=== PATIENT | male | born 1935 | race Caucasian/White ===

== ENCOUNTER 2018-03-20 11:24 | Day surgery (SDC) | payer OTHER, BC ==
--- OUTSIDE RECORDS SUMMARY | 2018-03-20 11:31 | XMS REPORT | Clinical Summary ---
:1935 Author Organization [facility] Address [address] [place] [address] Care Team Providers Name Role Phone Shailesh Mccauley MD Primary Care Provider Allergies No Known Allergies Current Medications Prescription Sig. Disp. Refills Start Date End Date Status atorvastatin (LIPITOR) 40 11/16/2017 Active MG tablet levothyroxine (SYNTHROID, 11/16/2017 Active LEVOXYL) 25 mcg tablet aspirin (ECOTRIN) 81 MG Take 81 mg by Active enteric coated tablet mouth daily. carvedilol (COREG) 3.125 Take 3.125 mg by Active MG tablet mouth 2 (two) times a day with meals. zinc sulfate (ZINCATE) 220 Take 220 mg by Active (50) mg capsule mouth daily. multivitamin with minerals Take 1 tablet by Active tablet mouth daily. ascorbic acid, vitamin C, Take 500 mg by Active (VITAMIN C) 500 MG tablet mouth daily. meropenem-0.9% sodium Infuse 1 g into a Active chloride 1 gram/50 mL venous catheter. piggyback VANCOMYCIN/0.9 % SOD Infuse into a Active CHLORIDE (VANCOMYCIN IN venous catheter. 0.9 % SODIUM CHL) 1.25 gram/250 mL solution LIRAGLUTIDE SUBQ Inject 1.8 mg Active under the skin. sitaGLIPtin (JANUVIA) 50 Take 50 mg by Active MG tablet mouth daily. insulin asp prt-insulin Inject 4 Units Active ASPART (NovoLOG 70/30) 100 under the skin 3 unit/mL (70-30) injection (three) times a day. WITH MEALS lisinopril Take 10 mg by Active (PRINIVIL,ZESTRIL) 10 mg mouth daily. tablet Active Problems Not on file Encounters Date Type Specialty Care Team Description 01/21/2018 Hospital Encounter General Surgery Basilio Fernandes Peripheral vascular T., MD disease 01/21/2018 Anesthesia Event General Surgery Adal Franklin, DIRECTOR OF PLACEMENT 01/21/2018 Procedure Pass General Surgery 01/21/2018 Surgery General Surgery Basilio Fernandes LEFT LOWER EXTREMITY MD Luci ANGIOGRAM,CSI ARTHRECTOMY, BALLOON ANGIOPLASTY, STENT PLACEMENT 01/17/2018 Hospital Encounter General Surgery Basilio Fernandes MD 01/17/2018 Orders Only Radiology Jason Gamez, RT 01/17/2018 Anesthesia Event General Surgery Nidia Cowan, DIRECTOR OF PLACEMENT 01/17/2018 Procedure Pass General Surgery 01/17/2018 Surgery General Surgery Basilio Fernandes LEFT LOWER EXTREMITY MD Luci ANGIOGRAM, ANTERIOR TIBIAL ARTERY BALLOON ANGIOPLASTY, INSERTION OF ENDOVASCULAR STENT TO LEFT SUPERFICIAL FEMORAL ARTERY, INTRAVASCULAR ULTRASOUND OF LEFT COMMON ILIAC ARTERY after 03/19/2017 Social History Tobacco Use Types Packs/Day Years Used Date Former Smoker 2 15 Quit: 1963 Smokeless Tobacco: Never Used Alcohol Use Drinks/Week oz/Week Comments No Sex Assigned at Date Recorded Not on file Last Filed Vital Signs Vital Sign Reading Time Taken Blood Pressure 164/87 01/21/2018 5:00 PM SIDE STITCHING MACHINE OPERATOR Pulse 69 01/21/2018 5:15 PM SIDE STITCHING MACHINE OPERATOR Temperature 36.8 C (98.2 F) 01/21/2018 3:57 PM SIDE STITCHING MACHINE OPERATOR Respiratory Rate 18 01/21/2018 5:15 PM SIDE STITCHING MACHINE OPERATOR Oxygen Saturation 98% 01/21/2018 5:15 PM SIDE STITCHING MACHINE OPERATOR Inhaled Oxygen Concentration - - Weight 93 kg (205 lb 0.4 oz) 01/21/2018 12:04 PM SIDE STITCHING MACHINE OPERATOR Height 180.3 cm (5' 11") 01/21/2018 12:04 PM SIDE STITCHING MACHINE OPERATOR Body Mass Index 28.6 01/21/2018 12:04 PM SIDE STITCHING MACHINE OPERATOR Plan of Treatment Health Maintenance Due Date Last Done Comments SHINGRIX VACCINE (#1) 1983 ZOSTER VACCINE 1993 PNEUMOCOCCAL POLYSACCHARIDE VACCINE AGE 65 AND OVER 1998 PNEUMOCOCCAL-13 1998 INFLUENZA VACCINE 06/19/2018 Implants Implanted Type Area Bottom Cager Device Expiration Model / Identifier Date Serial / Lot Valve Hmsts Accessplus 9fr Lgbr - [id number] Cardiovascular N/A: N/A [employer] 12/19/2019 [id number] / Implanted: 01/17/2018 (Quantity not on file) [employer] / [id number] Stent Supera Peripheral Syst [id number] - [id number] Peripheral or N/A : N/A ESTRADA 06/18/2019 S 50 [id number] P6 / Implanted: 01/21/2018 (Quantity not on file) Biliary Stents VASCULAR / DEVICES [id number] System Clsr Sut Meditd 6fr Perclose Proglide - [id number] Surgical Right: ESTRADA 10/18/2019 [id number] / Implanted: 01/17/2018 (Quantity not on file) Implants; Artery, VASCULAR / Expanders; Femoral DEVICES [id number] Extenders; Surgical Wires System Clsr Sut Meditd 6fr Perclose Proglide - [id number] Surgical N/A: N/A ESTRADA 08/18/2019 [id number] / Implanted: 01/21/2018 (Quantity not on file) Implants; VASCULAR / Expanders; DEVICES [id number] Extenders; Surgical Wires Procedures Procedure Name Priority Date/Time Associated Diagnosis Comments FL AN ELECTIVE Routine 01/21/2018 1:36 PM SUPRAGLOTTIC AIRWAY SIDE STITCHING MACHINE OPERATOR Procedure Note - Adal Franklin CRNA - 01/21/2018 1:36 PM SIDE STITCHING MACHINE OPERATOR Airway Date/Time: 01/21/2018 1:36 PM Performed by: ADAL FRANKLIN Authorized by: LUCRECIA ELIZABETH Location: OR Urgency: Elective Difficult Airway: No Anesthesiologist: LUCRECIA ELIZABETH Resident/ROSALIE/AA: ADAL FRANKLIN Performed by: resident/ROSALIE/AA Preoxygenated with 100% O2: Yes C-spine Precautions Maintained Throughout: Yes Mask Ventilation: Easy mask Final Airway Type: Supraglottic airway Final LMA: I-Gel LMA Size: 5 Number of Attempts at Approach: 1 FL AN ELECTIVE SUPRAGLOTTIC AIRWAY Routine 01/17/2018 2:49 PM SIDE STITCHING MACHINE OPERATOR Procedure Note - Jazzy Gordon CRNA - 01/17/2018 2:49 PM SIDE STITCHING MACHINE OPERATOR Airway Date/Time: 01/17/2018 2:42 PM Performed by: JAZZY GORDON Authorized by: LUCRECIA ELIZABETH Location: OR Urgency: Elective Difficult Airway: No Anesthesiologist: LUCRECIA ELIZABETH Resident/DIRECTOR OF PLACEMENT/AA: JAZZY GORDON Performed by: resident/DIRECTOR OF PLACEMENT/AA Preoxygenated with 100% O2: Yes C-spine Precautions Maintained Throughout: Yes Mask Ventilation: Easy mask Final Airway Type: Supraglottic airway Final LMA: I-Gel LMA Size: 5 Number of Attempts at Approach: 1 after 03/19/2017 Results OR FL > I Hour (01/21/2018 2:46 PM)Only the most recent of2 resultswithin the time period is included. Specimen Performing Laboratory [facility] [address] [place] [address] Narrative EXAMINATION:OR FL 1 HOUR CLINICAL HISTORY: IMPRESSION: Fluoroscopy was provided. No radiologist present.Please see procedure report for discussion of procedure, findings and fluoroscopic time. [facility]-[id number] Procedure Note Hm Interface, Radiology Results Incoming - 01/21/2018 2:52 PM SIDE STITCHING MACHINE OPERATOR EXAMINATION: OR FL 1 HOUR CLINICAL HISTORY: IMPRESSION: Fluoroscopy was provided. No radiologist present. Please see procedure report for discussion of procedure, findings and fluoroscopic time. [facility]-[id number] POC glucose (01/21/2018 2:40 PM)Only the most recent of3 resultswithin the time period is included. Component Value Ref Range POC glucose 190 (H) 65 - 99 mg/dL Comment: RN Notified Meter ID: [id number] Customer Acquisition Specialist: Petar Coles Specimen Performing Laboratory [facility] DEPARTMENT OF PATHOLOGY AND GENOMIC MEDICINE [address] [place] [address] Sodium level, syringe (01/21/2018 2:14 PM) Component Value Ref Range Sodium, syringe 132 125 - 148 mEq/L Specimen Performing Laboratory Blood [facility] DEPARTMENT OF PATHOLOGY AND GENOMIC MEDICINE [address] [place] [phone] Potassium, syringe (01/21/2018 2:14 PM) Component Value Ref Range Potassium, syringe 4.0 3.5 - 5.0 mEq/L Specimen Performing Laboratory Blood [facility] DEPARTMENT OF PATHOLOGY AND GENOMIC MEDICINE [address] [place] [address] Ionized calcium, arterial (01/21/2018 2:14 PM) Component Value Ref Range Ionized calcium, arterial 1.06 (L) 1.11 - 1.32 mmol/L Specimen Performing Laboratory Blood [facility] DEPARTMENT OF PATHOLOGY AND GENOMIC MEDICINE [address] [place] [phone] Hemoglobin, syringe (01/21/2018 2:14 PM) Component Value Ref Range Hemoglobin, syringe 10.2 (L) 14.0 - 18.0 g/dL Specimen Performing Laboratory Blood [facility] DEPARTMENT OF PATHOLOGY AND GENOMIC MEDICINE [address] [place], [place] [phone] Glucose level, syringe (01/21/2018 2:14 PM) Component Value Ref Range Glucose, syringe 170 (H) 65 - 99 mg/dL Specimen Performing Laboratory Blood [facility] DEPARTMENT OF PATHOLOGY AND GENOMIC MEDICINE [address] [place], [place] [phone] Estimated GFR (01/21/2018 2:14 PM) Component Value Ref Range GFR Non Af Amer >90 mL/min/1.73 m2 GFR Af Amer >90 mL/min/1.73 m2 Comment: Chronic kidney disease: <60 mL/min/1.73m2 Kidney failure: <15 mL/min/1.73m2 The estimated GFR is calculated from the IDMS-traceable Modification of Diet in Renal Disease Equation. The accuracy of the calculation is poor when the creatinine is normal. Calculated values >90 mL/min/1.73m2 are not reported. This equation has not been validated in children (<18 years), women, the elderly (>70 years), or ethnic groups other than Caucasians and Americans. Specimen Performing Laboratory Plasma specimen [facility] DEPARTMENT OF PATHOLOGY AND GENOMIC MEDICINE [address] [place], [place] [phone] Arterial blood gas, corrected (01/21/2018 2:14 PM) Component Value Ref Range pH, arterial 7.37 7.35 - 7.45 pCO2, arterial 41 35 - 45 mmHg pO2, arterial 361 (H) 80 - 90 mmHg Temperature, Celsius 36.5 Degrees C O2 saturation, arterial 99 95 - 100 % pH, arterial corrected 7.37 pCO2, arterial corrected 40 mmHg pO2, arterial corrected 358 mmHg Base excess, arterial -2 -2 - 2 mEq/L Specimen Performing Laboratory Blood [facility] DEPARTMENT OF PATHOLOGY AND GENOMIC MEDICINE [address] [place], [place] [phone] CBC hemogram (01/21/2018 2:14 PM) Component Value Ref Range WBC 16.0 (H) 4.5 - 11.0 k/uL RBC 3.46 (L) 4.40 - 6.00 m/uL HGB 9.7 (L) 14.0 - 18.0 g/dL HCT 30.2 (L) 41.0 - 51.0 % MCV 87.3 82.0 - 100.0 fL MCH 28.0 27.0 - 34.0 pg MCHC 32.1 31.0 - 37.0 g/dL RDW - SD 45.1 37.0 - 55.0 fL MPV 10.5 6.9 - 11.0 fL Platelet count 410 (H) 150 - 400 K/uL Nucleated RBC 0.00 /100 WBC Specimen Performing Laboratory [facility] DEPARTMENT OF PATHOLOGY AND [address] [address] Magnesium level (01/21/2018 2:14 PM) Component Value Ref Range Magnesium 2.2 1.6 - 2.4 mg/dL Specimen Performing Laboratory Plasma specimen [facility] PATHOLOGY AND [address] [address] Basic metabolic panel (01/21/2018 2:14 PM) Component Value Ref Range Sodium 134 (L) 135 - 148 mEq/L Potassium 4.3 3.5 - 5.0 mEq/L Chloride 100 98 - 112 mEq/L CO2 23 (L) 24 - 31 mEq/L Anion gap 11 7 - 15 mEq/L Comment: Starting from February , anion gap calculation no longer incorporates potassium. Please note the change. BUN 14 8 - 23 mg/dL Creatinine 0.7 0.7 - 1.2 mg/dL Glucose 174 (H) 65 - 99 mg/dL Calcium 8.4 (L) 8.8 - 10.2 mg/dL Specimen Performing Laboratory Plasma specimen [facility] DEPARTMENT PATHOLOGY AND [address] [address] Urinalysis screen and microscopy, with reflex to culture (01/21/2018 1:30 PM) Component Value Ref Range Specimen site Catheterized Color, UA Yellow Appearance, UA Sl Cloudy Specific gravity, UA 1.012 1.001 - 1.030 pH, UA 5.0 5.0 - 9.0 Protein, UA Negative Negative Glucose, UA Negative Negative Ketones, UA Negative Negative Bilirubin, UA Negative Negative Blood, UA Negative Negative Nitrite, UA Negative Negative Urobilinogen, UA <2.0 <2.0 E.U./dL Leukocyte esterase, UA Negative Negative WBC, UA <1 0 - 1 /HPF RBC, UA 1 0 - 1 /HPF Bacteria, UA Few None seen Yeast, UA None seen Yeast with pseudohyphae, UA None seen Specimen Performing Laboratory Urine - Urine, catheter [facility] DEPARTMENT OF PATHOLOGY AND GENOMIC MEDICINE [address] [place] [phone] Urine culture (01/21/2018 1:30 PM) Component Value Ref Range Urine culture SEE COMMENTComment: Bacteriuria screen negative. Specimen Performing Laboratory [facility] DEPARTMENT OF PATHOLOGY AND GENOMIC MEDICINE [address] [place] [address] Type and screen (01/21/2018 12:27 PM)Only the most recent of2 resultswithin the time period is included. Component Value Ref Range ABO grouping B Rh type POS Antibody screen (gel) NEG Specimen Performing Laboratory Blood [facility] DEPARTMENT OF PATHOLOGY AND GENOMIC MEDICINE [address] [place] [phone] XR Chest 1 Vw Portable (01/17/2018 2:27 PM) Specimen Performing Laboratory [facility] [address] [place] [address] Narrative EXAMINATION:XR CHEST 1 VW PORTABLE CLINICAL HISTORY:pre procedure COMPARISON:None available. IMPRESSION: A left PICC overlies the distal SVC. Cardiomediastinal silhouette is normal. Pulmonary vasculature is normal, and the lungs are clear. No pleural effusion or pneumothorax. Degenerative changes in the spine. [facility]-[id number] Procedure Note Interface, Radiology Results Incoming - 01/17/2018 2:41 PM SIDE STITCHING MACHINE OPERATOR EXAMINATION: XR CHEST 1 VW PORTABLE CLINICAL HISTORY: pre procedure COMPARISON: None available. IMPRESSION: A left PICC overlies the distal SVC. Cardiomediastinal silhouette is normal. Pulmonary vasculature is normal, and the lungs are clear. No pleural effusion or pneumothorax. Degenerative changes in the spine. [facility]-[id number] Partial thromboplastin time, activated (01/17/2018 2:04 PM) Component Value Ref Range PTT 23.9 23.0 - 36.0 sec Comment: PTT therapeutic range for unfractionated heparin is 61.0-112.0 seconds which corresponds to Anti-Xa 0.3-0.7 U/ml. Specimen Performing Laboratory Blood [facility] DEPARTMENT OF PATHOLOGY AND GENOMIC MEDICINE [address] [place] [phone] Prothrombin time with INR (01/17/2018 2:04 PM) Component Value Ref Range Prothrombin time 13.9 12.0 - 15.0 sec INR 1.1 Comment: The International Normalized Ratio (INR) is a therapeutic monitoring tool for patients who are stable on oral anticoagulant therapy. An INR of 2.0-3.0 is suggested for deep vein thrombosis/pulmonary embolism. Specimen Performing Laboratory Blood [facility] DEPARTMENT OF PATHOLOGY AND GENOMIC MEDICINE [id number] [place] [address]. [place] [address] ECG 12 lead (01/17/2018 1:59 PM) Component Value Ref Range Ventricular rate 62 Atrial rate 62 FL interval 230 QRSD interval 96 QT interval 428 QTC interval 434 P axis 1 54 QRS axis 1 48 T wave axis 64 EKG impression Sinus rhythm with 1st degree AV block-Otherwise normal ECG-No previous ECGs available- Specimen Performing Laboratory [facility] [address] [place] [address] after 03/19/2017 Insurance Payer Benefit Plan / Group Subscriber ID Type Phone Address [facility] xxxxxxxxx Ani Home: [employer] [phone] [address] [facility] Ani Other 1935 Home: [employer] [phone] [address]
--- NOTE | 2018-03-20 11:35 | RAD REPORT ---
EXAM DESCRIPTION: RAD - Chest Pa And Lat (2 Views) - 03/20/2018 11:29 am CLINICAL HISTORY: Chest pain, preop. COMPARISON: 01/09/2018, 01/07/2018 FINDINGS: The lungs are mildly emphysematous but clear. The heart is normal in size. No displaced fr actures. Mild thoracic spondylosis. IMPRESSION: Mild COPD.
[2018-03-20 11:44] LABS: Protime INR 1.1
[2018-03-20] MEDS ORDERED: NA CHLORIDE 0.9% 1,000 ML ONE (11:51)
[2018-03-20 12:08] LABS: Absolute Lymphocytes (CBC) 2.7 K/uL (0.7-4.9); Absolute Monocytes 1.5 K/uL (0.1-1.3); Absolute Neutrophil 11.3 K/uL (1.8-8.0); Basophils % 0.8 % (0-1.3); Eosinophils % 2.5 % (0-4.4); Hematocrit 34.9 % (39.6-49.0); Lymphocytes % 16.6 % (15.3-44.8); MCH 26.5 pg (27.0-35.0); MCV 82.9 fL (80-100); Monocytes % 9.6 % (3.3-12.3); RBC Red Blood Cell Count 4.21 M/uL (4.33-5.43)
--- NOTE | 2018-03-20 12:16 | EKG ---
Test Date: 2018-03-20 Test Time: 11:04:09 Career Guidance Technician: JORDON MEASUREMENT RESULTS: Intervals: Rate: 67 UT: 204 QRSD: 98 QT: 408 QTc: 431 [place]: P: 42 UT: 204 QRS: 26 T: 54 INTERPRETIVE STATEMENTS: Normal sinus rhythm Normal ECG Compared to ECG 01/07/2018 15:37:36 Atrial fibrillation no longer present T-wave abnormality no longer present Electronically Signed On 03-20-18 12:15:42 CDT by Matias Turner
[2018-03-20 12:27] VITALS: BP 122/67; TEMP 97.7; O2SAT 98
[2018-03-20] MEDS ORDERED: BUPIVACAINE 0.5% PF 10 ML VIAL ONE (12:51)
[2018-03-20] MEDS ORDERED: LIDOCAINE 1% 20 ML MDV ONE (12:51)
[2018-03-20] MEDS ORDERED: PROPOFOL 200 MG/20 ML VIAL IV ONE ×2 (12:53→13:22)
[2018-03-20] MEDS ORDERED: LIDOCAINE 2% MPF 5 ML VIAL ONE (12:53)
--- NOTE | 2018-03-20 13:40 | P.OP ---
Visitor Services Representative: NONE,NONE Preoperative diagnosis: left hallux osteomyelitis Postoperative diagnosis: same Primary procedure: left hallux amputation Secondary procedure: none Other procedure(s): none Anesthesia: mac with 10cc 1:1 o.5% marcaine, 1% lidocaine plain Estimated blood loss: <20cc Specimen: bone Findings: as above Operative Technique: left hallux amputation at the mpj Complications: None
== END 2018-03-20 14:45 | disposition home or self-care (01) ==
LOC: OR 11:24
PROVIDERS: ATTEND Podiatrist Foot & Ankle Surgery
PROC: 0Y6Q0Z0 Detachment at Left 1st Toe, Complete, Open Approach (ICD-10-PCS; principal; 2018-03-20 12:30)
DX: M86.172 Other acute osteomyelitis, left ankle and foot (principal)
CPT/HCPCS: 28820; 36415; 71046; 82947; 82962; 85025; 85610; 85730; 88305; 88311; 93005; J7030

== ENCOUNTER 2021-04-05 07:05 | Day surgery (SDC) | payer OTHER, BC ==
[2021-04-01 13:22] LABS: Absolute Lymphocytes (CBC) 2.1 K/uL (0.7-4.9); Basophils % 1.3 % (0-1.3); Hematocrit 36.4 % (39.6-49.0); MPV 9.3 fL (7.6-11.3); RBC Red Blood Cell Count 4.35 M/uL (4.33-5.43)
[2021-04-01 13:24] LABS: Protime INR 1.79
--- NOTE | 2021-04-01 13:38 | RAD REPORT ---
EXAM DESCRIPTION: Genny Dewey (2 Views)04/01/2021 1:14 pm CLINICAL HISTORY: Preop for circumcision COMPARISON: 2017 FINDINGS: Mild elevation of the left hemidiaphragm unchanged Lungs appear clear of acute infiltrate. Heart is borderline enlarged IMPRESSION: No acute abnormalities displayed
[2021-04-01 13:40] LABS: Potassium 4.7 mmol/L (3.5-5.1)
[2021-04-05] MEDS ORDERED: CEFAZOLIN/SWI 2gm 2 GM/20 ML SYR ONE (07:45)
[2021-04-05] MEDS ORDERED: NA CHLORIDE 0.9% 1,000 ML ONE (07:45)
[2021-04-05] MEDS ORDERED: LIDOCAINE 1% MPF 30 ML VIAL ONE (07:46)
[2021-04-05] MEDS ORDERED: BUPIVACAINE 0.25% PF 10 ML VIAL ONE (07:46)
[2021-04-05] MEDS ORDERED: BACITRACIN OINTMENT 15 GM TUBE TOP ONE (07:49)
[2021-04-05 07:53] LABS: Protime INR 1.09
[2021-04-05] MEDS ORDERED: LIDOCAINE 1% MPF 5 ML VIAL ONE (08:44)
[2021-04-05] MEDS ORDERED: propofoL 200 MG/20 ML VIAL IV ONE ×3 (08:44→08:58)
[2021-04-05] MEDS ORDERED: FENTANYL CITR 100 MCG/2 ML ONE (08:44)
[2021-04-05] MEDS ORDERED: Phenylephrine HCl 10 MG/ML 1 ML VIAL ONE (09:16)
[2021-04-05] MEDS ORDERED: NS 0.9% VIAL 10 ML ONE (09:16)
[2021-04-05] MEDS ORDERED: HYDROCODONE/APAP 5/325 MG TAB PO PRN (10:09)
--- NOTE | 2021-04-05 11:04 | OP ---
Surgeon: ANAND SIMPSON Preoperative Diagnosis: Dense phimosis. Postoperative Diagnosis: Dense phimosis. Principle Procedures: 1. Penile block. 2. Sleeve circumcision. Date of Procedure: 04/05/21 Indication For Procedure: Mr. Roberts presented to the Urology Clinic with bothersome more urinary symptoms. He noted significant improvement of his symptoms associated with the use of alpha blockers, but he had persistent issues with phimosis where he was unable to visualize the glans penis. As a result, he was recommended for elective circumcision and was scheduled accordingly. Procedure In Detail: The patient was consented in the preoperative holding area before being transferred to the operative suite where general anesthesia was induced. He was given Ancef 2 g IV antimicrobial prophylaxis and pneumo boots were provided for DVT prophylaxis. He was supine on the procedure table, padded and secured appropriately. His genitalia were shaved, prepped using Betadine, and draped in standard fashion. A penile block was then applied using a 1:1 or 50:50 mixture of 1% lidocaine and 4% Marcaine plain. A total of 30 mL of the mixture was injected in the infrapubic region and in the region of the neurovascular bundles bilaterally. The case was then begun by using a straight clamp to perform a dorsal slit and divide the dense phimotic ring. Once the glans was visualized, a circumferential incision line was made at the base of the cobos of the glans, and a 15 blade was used to incise the skin and subcutaneous tissues as well as some of the dartos layers. The foreskin was then completely retracted, and a preputial margin was then developed leaving an approximately 1 cm preputial margin with the remainder excised using a 15 blade. The intervening skin was then divided in the dorsal midline and then resected off the shaft of the penis using electrocautery. Once this was performed, that was sent for pathologic analysis. A then careful search for bleeding was undertaken by fulgurating any and all potential bleeding vessels within the dartos layers of the penis. Of note, likely from the penile block initially given, there was a slight degree of subcutaneous hematoma in the dartos layers and this was carefully fulgurated and any hematoma was excised. The area was carefully surveyed over a period of time and was noted to be completely hemostatic and completely fulgurated. With no significant other oozing noted, I then began the reconstruction. Using 3-0 chromic suture dipped in bacitracin, quadrant sutures were applied and the intervening tissues were then sewn together in a running horizontal mattress fashion. In the end, the cosmetic result was excellent and the area was completely hemostatic. Where there was a slight degree of ooze noted, an additional [id number]-gy-[id number] suture was applied given the patient's need to resume anticoagulant therapy. A wet and dry was then applied to cleanse the Betadine, and bacitracin was applied around the incision. A Bob and then Coban dressing was applied, and the patient was then awakened from general anesthesia, transferred to a stretcher, and then to the recovery room in good condition. Complications: None. Discharge Disposition: He will keep the pressure dressing on as long as it is not painful or until tomorrow morning, at which point, he can remove it himself at home. A prescription for Tylenol with Codeine will be sent to the pharmacy for pain management as necessary. I am going to recommend that he refrain from taking his anticoagulant medication until next Sunday, at which point, he can resume it and notify us in the office if he has any issues. ADALID/LEXA Voice ID: [id number] Report ID: [id number] RUTH
[2021-04-05 11:47] VITALS: TEMP 97.2
[2021-04-05 11:48] VITALS: BP 121/73; O2SAT 97
--- NOTE | 2021-04-06 08:45 | EKG ---
Test Date: 2021-04-01 Test Time: 11:48:39 Doctor Of Nurse Anesthesia Practice: [facility] MEASUREMENT RESULTS: Intervals: Rate: 81 MT: QRSD: 100 QT: 372 QTc: 432 [place]: P: MT: QRS: 64 T: 8 INTERPRETIVE STATEMENTS: Atrial flutter with variable AV block Abnormal ECG Compared to ECG 03/20/2018 11:04:09 Sinus rhythm no longer present Electronically Signed On 04-06-21 08:41:50 CDT by Alejandro Steinberg
== END 2021-04-05 11:23 | disposition home or self-care (01) ==
LOC: OR 07:05
PROVIDERS: ATTEND Urology
PROC: 0VTTXZZ Resection of Prepuce, External Approach (ICD-10-PCS; principal; 2021-04-05 08:15)
DX: N47.1 Phimosis (principal); Z20.822 Contact with and (suspected) exposure to COVID-19
CPT/HCPCS: 93005; 85025; 80048; 36415 ×2; 85610 ×2; 82947; 88304; 85730; 71046; 54150; U0003; J2704 ×3; J2370; J3010; J0690; J7030

== ENCOUNTER 2022-06-16 09:24 | Emergency (ER) | payer OTHER, BC ==
[2022-06-16] MEDS ORDERED: PANTOPRAZOLE 40 MG INJ ONE (10:22)
--- NOTE | 2022-06-16 10:59 | ER ---
Nurse's Notes [facility] Name: Jorge Roberts Age: 87 yrs Sex: Male : 1935 Arrival Date: 06/16/2022 Time: 09:27 Bed 8 Private MD: Diagnosis: GI Bleed/ Gastrointestinal hemorrhage, unspecified-upper;Weakness;Elevated white blood cell count;Anemia, unspecified;Chronic atrial fibrillation Presentation: 06/16 09:45 Chief complaint: Spouse and/or significant other states: black stool since last , was iw sent by [employer] this morning, also had a lower BP , had heart surgery on Dec 20, pt states he is on blood thinners but doesn't know which one. Coronavirus screen: At this time, the client does not indicate any symptoms associated with coronavirus-19. Ebola Screen: Patient negative for fever greater than or equal to 101.5 degrees Fahrenheit, and additional compatible Ebola Virus Disease symptoms Patient denies exposure to infectious person. Patient denies travel to an Ebola-affected area in the 21 days before illness onset. No symptoms or risks identified at this time. Initial Sepsis Screen: Does the patient meet any 2 criteria? No. Patient's initial sepsis screen is negative. Does the patient have a suspected source of infection? No. Patient's initial sepsis screen is negative. Risk Assessment: Do you want to hurt yourself or someone else? Patient reports no desire to harm self or others. 09:45 Method Of Arrival: Wheelchair iw 09:47 Onset of symptoms was June 15, 2022. iw 09:47 Acuity: KERA 2 iw Triage Assessment: 13:59 General: Appears in no apparent distress. Behavior is calm, cooperative, appropriate ll1 for age. Pain: Denies pain. Historical: - PMHx: 09:47 Hyperlipidemia; Hypothyroidism; Hypertension; Diabetes - NIDDM; iw - PSHx: 09:47 heart surgery; iw - Immunization history:: Client reports receiving the 2nd dose of the Covid vaccine. - Social history:: Smoking status: Patient denies any tobacco usage or history of. Screenin:58 Abuse screen: Denies threats or abuse. Nutritional screening: No deficits noted. ll1 Tuberculosis screening: No symptoms or risk factors identified. Fall Risk IV access (20 points). Gait- Weak (10 pts.). Total Greco Fall Scale indicates Low Risk Score (25-44 pts). Fall prevention measures have been instituted. Side Rails Up X 2 Placed close to Nursing Station Frequent Obs/Assesments occuring Family Present and informed to notify staff if they need to leave bedside As available Patient and Family Educated on Fall Prevention Program and strategies. Assessment: 10:45 Reassessment: No changes from previously documented assessment. Patient and/or family ll1 updated on plan of care and expected duration. Pain level reassessed. Patient is alert, oriented x 3, equal unlabored respirations, skin warm/dry/pink. 11:34 Reassessment: No changes from previously documented assessment. Patient and/or family ll1 updated on plan of care and expected duration. Pain level reassessed. Patient is alert, oriented x 3, equal unlabored respirations, skin warm/dry/pink. Pain: Denies pain. 12:21 Reassessment: No changes from previously documented assessment. Patient and/or family ll1 updated on plan of care and expected duration. Pain level reassessed. Patient is alert, oriented x 3, equal unlabored respirations, skin warm/dry/pink. 13:20 Reassessment: No changes from previously documented assessment. Patient and/or family ll1 updated on plan of care and expected duration. Pain level reassessed. Patient is alert, oriented x 3, equal unlabored respirations, skin warm/dry/pink. Vital Signs: 09:48 Pulse 99; Resp 16; Temp 97.4; Pulse Ox 97% on R/A; Weight 97.52 kg; iw 09:59 BP 153 / 125; Pulse 85; Resp 18; Temp 97.8; Pulse Ox 100% ; Weight 97.52 kg; Height 5 mw1 ft. 11 in. (180.34 cm); 10:55 BP 102 / 59; Pulse 80; ll1 11:33 BP 97 / 54; Pulse 85; Pulse Ox 100% on R/A; ll1 12:21 BP 104 / 61; Pulse 88; Resp 18; Pulse Ox 100% ; ll1 12:44 BP 114 / 68; ll1 13:24 BP 110 / 61; Pulse 92; Resp 18; Temp 97.8; Pulse Ox 100% on R/A; ll1 14:00 BP 113 / 68; Pulse 84; Resp 18; Temp 97.1; Pulse Ox 100% ; ll1 09:59 Body Mass Index 29.99 (97.52 kg, 180.34 cm) mw1 ED Course: 09:27 Patient arrived in ED. rg4 09:47 Triage completed. iw 09:48 Arm band placed on. iw 09:54 Harvinder Quintero MD is Attending Physician. angie 09:55 Amee Diana, REENA is Primary Nurse. ll1 09:55 Patient placed in an exam room, on a stretcher. ll1 10:00 Bed in low position. Call light in reach. Side rails up X 1. Door closed. Noise mw1 minimized. Warm blanket given. Client placed on continuous cardiac and pulse oximetry monitoring. NIBP monitoring applied. repair manager on. Pulse ox on. 10:[address] Quintero with Ricky Shankar from the [facility]. 10:57 XRAY Chest (1 view) In Process Unspecified. EDMS 11:[address] Apple Carrizales from [facility] with Dr. Quintero for patient transfer eb consultation. 12:25 administrative approval given by EMMY George / [facility]/ Dr. Apple Carrizales has accepted the patient in transfer/ report to be called to [phone]. 12:42 Inserted saline lock: 20 gauge in left antecubital area, using aseptic technique. Blood ll1 collected. 12:42 Inserted saline lock: 18 gauge in right antecubital area, using aseptic technique. ll1 13:59 No provider procedures requiring assistance completed. Patient transferred, IV remains ll1 in place. Administered Medications: 11:11 Drug: ProTONIX (pantoprazole) 80 mg Route: IVP; Site: right antecubital; ll1 12:42 Follow up: Response: No adverse reaction; RASS: Alert and Calm (0) ll1 11:12 Drug: ProTONIX (pantoprazole) 8 mg/hr Route: IV; Rate: 25 ml/hr; Site: right ll1 antecubital; 14:02 Follow up: Response: No adverse reaction; IV Status: Infusion continued; IV Intake: [id number] Medication: 14:00 VIS not applicable for this client. ll1 Intake: 14:02 IV: 50ml; Total: 50ml. ll1 Outcome: 10:59 ER care complete, transfer ordered by . angie 13:59 Transferred by ground EMS to [facility] [place], Transfer form completed. ll1 Note: [facility] 4E rm 404. Report given to Smita Haque RN. 13:59 Condition: stable 13:59 Instructed on the need for transfer. 14:03 Patient left the ED. ll1 Signatures: Dispatcher [employer] Harvinder Butler MD MD cha Williams, Irene, RN RN Ashley Smallwood 4 Filiberto Wilder 1 Jennifer De Dios Lynsay RN RN ll1 Corrections: (The following items were deleted from the chart) 09:49 09:48 Pulse 99bpm; Resp 16bpm; Pulse Ox 97% RA; Temp 97.4F; 97.52 kg; iw cindy
--- NOTE | 2022-06-16 10:59 | EDPHYS ---
Physician Documentation [facility] Name: Jorge Roberts Age: 87 yrs Sex: Male : 1935 Arrival Date: 06/16/2022 Time: 09:27 Bed 8 Private MD: ED Physician Harvinder Quintero HPI: 06/16 10:51 This 87 yrs old Male presents to ER via Wheelchair with complaints of angie Black/Tarry Stools, Weakness, Low BP. 10:51 The patient presents to the emergency department with weakness of the. angie 10:52 The patient presents to the emergency department with rectal bleeding, with multiple angie such episodes. Onset: The symptoms/episode began/occurred 2 day(s) ago. Abdominal pain: none is appreciated. Modifying factors: The symptoms are alleviated by nothing, the symptoms are aggravated by nothing. black stools, weak, on blood thinners. Associated signs and symptoms: Pertinent positives: dizziness when standing. Severity of symptoms: At their worst the symptoms were mild moderate in the emergency department the symptoms are unchanged. Historical: - PMHx: 09:47 Hyperlipidemia; Hypothyroidism; Hypertension; Diabetes - NIDDM; iw - PSHx: 09:47 heart surgery; iw - Immunization history:: Client reports receiving the 2nd dose of the Covid vaccine. - Social history:: Smoking status: Patient denies any tobacco usage or history of. ROS: 10:54 Constitutional: Negative for fever, chills, and weight loss, Eyes: Negative for injury, angie pain, redness, and discharge, ENT: Negative for injury, pain, and discharge, Neck: Negative for injury, pain, and swelling, Cardiovascular: Negative for chest pain, palpitations, and edema, Respiratory: Negative for shortness of breath, cough, wheezing, and pleuritic chest pain, Back: Negative for injury and pain, : Negative for injury, bleeding, discharge, and swelling, MS/Extremity: Negative for injury and deformity, Psych: Negative for depression, anxiety, suicide ideation, homicidal ideation, and hallucinations, Allergy/Immunology: Negative for hives, rash, and allergies, Endocrine: Negative for neck swelling, polydipsia, polyuria, polyphagia, and marked weight changes, Hematologic/Lymphatic: Negative for swollen nodes, abnormal bleeding, and unusual bruising. 10:54 Abdomen/GI: Positive for abdominal pain, black/tarry stool. Exam: 10:54 Constitutional: This is a well developed, well nourished patient who is awake, alert, angie and in no acute distress. Head/Face: Normocephalic, atraumatic. Eyes: Pupils equal round and reactive to light, extra-ocular motions intact. Lids and lashes normal. Conjunctiva and sclera are non-icteric and not injected. Cornea within normal limits. Periorbital areas with no swelling, redness, or edema. ENT: Nares patent. No nasal discharge, no septal abnormalities noted. Tympanic membranes are normal and external auditory canals are clear. Oropharynx with no redness, swelling, or masses, exudates, or evidence of obstruction, uvula midline. Mucous membranes moist. Neck: Trachea midline, no thyromegaly or masses palpated, and no cervical lymphadenopathy. Supple, full range of motion without nuchal rigidity, or vertebral point tenderness. No Meningismus. Chest/axilla: Normal chest wall appearance and motion. Nontender with no deformity. No lesions are appreciated. Cardiovascular: Regular rate and rhythm with a normal S1 and S2. No gallops, murmurs, or rubs. Normal PMI, no JVD. No pulse deficits. Respiratory: Lungs have equal breath sounds bilaterally, clear to auscultation and percussion. No rales, rhonchi or wheezes noted. No increased work of breathing, no retractions or nasal flaring. Back: No spinal tenderness. No costovertebral tenderness. Full range of motion. Male : Normal genitalia with no discharge or lesions. MS/ Extremity: Pulses equal, no cyanosis. Neurovascular intact. Full, normal range of motion. Neuro: Awake and alert, GCS 15, oriented to person, place, time, and situation. Cranial nerves II-XII grossly intact. Motor strength 5/5 in all extremities. Sensory grossly intact. Cerebellar exam normal. Normal gait. Psych: Awake, alert, with orientation to person, place and time. Behavior, mood, and affect are within normal limits. 10:54 Abdomen/GI: Inspection: distension, Bowel sounds: normal, Palpation: abdomen is soft and non-tender, Rectal exam: is unremarkable, Prostate: normal, rectal tone normal, Stool: guaiac positive, black, hemorrhoid(s), are not appreciated, mass, is not appreciated, swelling, is not appreciated, tenderness, is not appreciated, fecal impaction, is not appreciated, Liver: no appreciated palpable abnormalities, Hernia: not appreciated. 10:59 ECG was reviewed by the Attending Physician. [facility] Vital Signs: 09:48 Pulse 99; Resp 16; Temp 97.4; Pulse Ox 97% on R/A; Weight 97.52 kg; iw 09:59 BP 153 / 125; Pulse 85; Resp 18; Temp 97.8; Pulse Ox 100% ; Weight 97.52 kg; Height 5 mw1 ft. 11 in. (180.34 cm); 10:55 BP 102 / 59; Pulse 80; ll1 11:33 BP 97 / 54; Pulse 85; Pulse Ox 100% on R/A; ll1 12:21 BP 104 / 61; Pulse 88; Resp 18; Pulse Ox 100% ; ll1 12:44 BP 114 / 68; ll1 13:24 BP 110 / 61; Pulse 92; Resp 18; Temp 97.8; Pulse Ox 100% on R/A; ll1 14:00 BP 113 / 68; Pulse 84; Resp 18; Temp 97.1; Pulse Ox 100% ; ll1 09:59 Body Mass Index 29.99 (97.52 kg, 180.34 cm) mw1 MDM: 09:54 Patient medically screened. [facility] 10:57 Differential diagnosis: diverticulitis, hemorrhoids, varices. Data reviewed: vital [facility] signs, nurses notes, EMS record, lab test result(s), EKG, radiologic studies, plain films. Data interpreted: ekg monitor tech: rate is 80 beats/min, Pulse oximetry: on room air is 100 %. Test interpretation: by ED physician or midlevel provider: ECG, plain radiologic studies. Counseling: I had a detailed discussion with the patient and/or guardian regarding: the historical points, exam findings, and any diagnostic results supporting the discharge/admit diagnosis, lab results, radiology results, the need for further work-up and treatment in the hospital. 06/16 10:02 Order name: Basic Metabolic Panel; Complete Time: 12:[address] [facility] 06/16 10:02 Order name: CBC with Diff; Complete Time: 12:[address] [facility] 06/16 10:02 Order name: LFT's; Complete Time: 12:[address] [facility] 06/16 10:02 Order name: Magnesium; Complete Time: 12:[address] [facility] 06/16 10:02 Order name: NT PRO-BNP; Complete Time: 12:[address] [facility] 06/16 10:02 Order name: PT-INR; Complete Time: 12:[address] [facility] 06/16 10:02 Order name: Troponin HS; Complete Time: 12:[address] [facility] 06/16 10:02 Order name: Lipase; Complete Time: 12:[address] [facility] 06/16 10:02 Order name: Type And Screen [facility] 06/16 10:02 Order name: SARS RAPID; Complete Time: 11: [facility] 06/16 10:59 Order name: Occult Blood--Ancillary 06/16 10:02 Order name: XRAY Chest (1 view); Complete Time: 11: [facility] 06/16 10:02 Order name: EKG; Complete Time: 10: [facility] 06/16 10:02 Order name: Cardiac monitoring; Complete Time: 11: [facility] 06/16 10:02 Order name: EKG - Nurse/Tech; Complete Time: 11: [facility] 06/16 10:02 Order name: IV Saline Lock; Complete Time: 10: [facility] 06/16 10:02 Order name: Labs collected and sent; Complete Time: 10: [facility] 06/16 10:02 Order name: O2 Per Protocol; Complete Time: 10: [facility] 06/16 10:02 Order name: O2 Sat Monitoring; Complete Time: : [facility] 06/16 10:02 Order name: IV Saline Lock - Large Bore; Complete Time: 10: [facility] 06/16 10:52 Order name: Labs - recollect needed: recollect all the blood per lab; Complete Time: eb 10:06/16 13:02 Order name: RBC Leukored Pheresis [facility] 06/16 13:23 Order name: FP24 Apheresis Thawed-3 [facility] 06/16 12:43 Order name: Transfuse; Complete Time: 14:[address] [facility] EC:59 Rate is 86 beats/min. Rhythm is irregularly irregular. QRS Isabel is Normal. LA interval angie is normal. QRS interval is normal. QT interval is normal. No Q waves. T waves are Normal. No ST changes noted. Clinical impression: Atrial Fibrillation and No evidence of ischemia. Interpreted by me. Reviewed by me. Administered Medications: 11:11 Drug: ProTONIX (pantoprazole) 80 mg Route: IVP; Site: right antecubital; ll1 12:42 Follow up: Response: No adverse reaction; RASS: Alert and Calm (0) ll1 11:12 Drug: ProTONIX (pantoprazole) 8 mg/hr Route: IV; Rate: 25 ml/hr; Site: right ll1 antecubital; 14:02 Follow up: Response: No adverse reaction; IV Status: Infusion continued; IV Intake: [id number] Disposition Summary: 06/16/22 10:59 Transfer Ordered Transfer Location: [facility] angie Reason: Higher level of care angie Condition: Stable angie Problem: new angie Symptoms: have improved angie Accepting Physician: to [facility](06/16/22 14:03) 1 Diagnosis - GI Bleed/ Gastrointestinal hemorrhage, unspecified - upper angie - Weakness angie - Elevated white blood cell count angie - Anemia, unspecified angie - Chronic atrial fibrillation angie Forms: - Medication Reconciliation Form angie - SBAR form angie Signatures: Dispatcher [employer] EDHarvinder Gilliland MD MD cha Williams, Irene RN Jennifer Brown Lynsay, RN RN 1 Corrections: (The following items were deleted from the chart) 10:59 10:59 to [facility] angie angie 13:11 13:02 RBC Leukoreduced (Pheresis 2) ordered. [facility] 13:31 10:59 to [facility] angie angie 13:39 13:31 to [facility] angie angie 14:03 13:39 to [facility] angie ll1
[2022-06-16] MEDS ORDERED: PANTOPRAZOLE INJ 80 MG in NA CHLORIDE 0.9% 250 ML IV ONE (11:00)
--- NOTE | 2022-06-16 11:01 | RAD REPORT ---
EXAM DESCRIPTION: RAD - Chest Single View - 06/16/2022 10:55 am CLINICAL HISTORY: COUGH COMPARISON: Chest Pa And Lat (2 Views) dated 04/01/2021; Chest Pa And Lat (2 Views) dated 03/20/2018; C hest Single View dated 01/09/2018; Chest Single View dated 01/07/2018 FINDINGS: Lines: None. Lungs: No evidence of edema or pneumonia. Pleural: No significant pleural effusions or pneumothorax. Cardiac: Stable size and configuration Bones: No acute fractures. Sternotomy. Other: IMPRESSION: No acute cardiopulmonary disease.
[2022-06-16 11:17] LABS: SARS-CoV-2 Antigen Rapid Res Negative (Negative)
[2022-06-16 12:11] LABS: Absolute Lymphocytes (CBC) 2.2 K/uL (0.7-4.9); Hematocrit 21.8 % (39.6-49.0); MCV 87.2 fL (80-100); MPV 8.6 fL (7.6-11.3)
[2022-06-16 12:22] LABS: Protime INR 1.45
[2022-06-16 12:29] LABS: Potassium 4.7 mmol/L (3.5-5.1)
[2022-06-16 12:30] LABS: Albumin 2.8 g/dL (3.4-5.0); Bilirubin Direct 0.2 mg/dL (0-0.2); Bilirubin Total 0.4 mg/dL (0.2-1.0); Magnesium 1.9 mg/dL (1.8-2.4); Protein, Total 5.8 g/dL (6.4-8.2)
[2022-06-16] MEDS ORDERED: NA CHLORIDE 0.9% 0 ML ONE (13:06)
[2022-06-16] MEDS ORDERED: ACETAMINOPHEN 325 MG TABLET ONE (13:10)
[2022-06-16] MEDS ORDERED: DIPHENHYDRAMINE 50 MG/ML VIAL ONE (13:10)
[2022-06-16 14:35] VITALS: O2SAT 100
[2022-06-16 14:58] VITALS: BP 113/68; TEMP 97.1
--- NOTE | 2022-06-18 16:58 | EKG ---
Test Date: 2022-06-16 Test Time: 10:44:39 Conductor Pullman: MB MEASUREMENT RESULTS: Intervals: Rate: 85 [place]: QRSD: 90 QT: 362 QTc: 430 [place]: P: W[place]: QRS: 78 T: -14 INTERPRETIVE STATEMENTS: Atrial fibrillation Nonspecific T wave abnormality, probably digitalis effect Abnormal ECG Compared to ECG 04/01/2021 11:48:39 T-wave abnormality now present Atrial flutter no longer present Electronically Signed On 06-18-22 16:57:33 CDT by Yosef Joshi
--- NOTE | 2022-06-19 12:28 | EKG ---
Test Date: 2022-06-16 Test Time: 10:45:12 Quality Assurance Tech: MB MEASUREMENT RESULTS: Intervals: Rate: 86 [place]: QRSD: 92 QT: 364 QTc: 435 [place]: P: [place]: QRS: 81 T: -6 INTERPRETIVE STATEMENTS: Atrial fibrillation Nonspecific ST and T wave abnormality, probably digitalis effect Abnormal ECG Compared to ECG 06/16/2022 10:44:39 ST (T wave) deviation now present T-wave abnormality no longer present Electronically Signed On 06-19-22 12:25:05 CDT by Yosef Joshi
== END 2022-06-16 14:03 | disposition short-term general hospital (02) ==
LOC: ER 09:24
PROC: 30233K1 Transfusion of Nonautologous Frozen Plasma into Peripheral Vein, Percutaneous Approach (ICD-10-PCS; principal; 2022-06-16)
DX: D64.9 Anemia, unspecified (principal); D72.829 Elevated white blood cell count, unspecified; I48.19 Other persistent atrial fibrillation; R53.1 Weakness; I10 Essential (primary) hypertension; E11.9 Type 2 diabetes mellitus without complications
CPT/HCPCS: 85025; 80048; 36415; 86900; 83735; 86850; 85610; 86870; 86901; 80076; 82272; 84484; 83690; 86927; 86922; 83880; 71045; 87811; 36430; J1200; C9113 ×2; P9016; P9017; J7050; 93005; 96365; 96366; 99285; J7040